=== PATIENT | female | born 1945 ===

== ENCOUNTER 2022-03-15 15:48 | Emergency (ER) | payer MEDICARE ==
[2022-03-15] MEDS ORDERED: SODIUM CHLORIDE 0.9% 1000 ML IV SOLN IV ONE ×2 (16:39→20:30)
[2022-03-15] MEDS ORDERED: cefTRIAXone/NS 2 GM/100 ML 2 GM/100 ML BAG IV ONE ×2 (16:49→21:00)
[2022-03-15] MEDS ORDERED: AZITHROMYCIN/NS 500 MG/250 ML 500 MG/250 ML BAG IV ONE ×2 (16:49→21:00)
--- NOTE | 2022-03-15 16:50 | Emergency Department Report ---
ED Altered Mental Status HPI - General Chief Complaint: Dyspnea/Respdistress Stated Complaint: PNEUMONIA/WEAKNESS Time Seen by Provider: 03/15/22 16:30 Source: EMS Mode of arrival: Stretcher Limitations: Other - History of Present Illness Initial Comments: 76-year-old female with a past medical history of dementia Alzheimer's type and hypothyroidism presents from [facility] for decreased mental status with recent diagnosed with pneumonia. Patient had a chest x-ray yesterday showing pneumonia. Today she has been more altered than usual and not eating and therefore was sent to the ER for evaluation. Patient is currently nonverbal but does follow some basic commands. History obtained from nurse who received EMS report and anchor paperwork patient had a checks x-ray performed 10 AM today showing a slight infiltrate in the left upper lobe TB is not excluded radiographically. Patient had a PPD placed on February 24 and read as negative on February 26. Patient was initially admitted to [place] on February 24. Also has dementia with confusion. - Related Data Previous Rx's Medication Instructions Recorded Last Taken Type Amoxicillin/Potassium Clav 1 each PO Q8HR 5 Days 03/15/22 Unknown Rx [Augmentin 875-125 Tablet] Azithromycin [Zithromax Z-JOSEFA] 1 dose PO DAILY 5 Days tab 03/15/22 Unknown Rx Allergies Allergy/AdvReac Type Severity Reaction Status Date / Time No Known Allergies Allergy Verified 03/15/22 20:20 ED Review of Systems ROS: Stated complaint: PNEUMONIA/WEAKNESS Other details as noted in HPI ED Past Medical Hx - Medications Home Medications: Home Medications Medication Instructions Recorded Confirmed Last Taken Type Amoxicillin/Potassium Clav 1 each PO Q8HR 5 Days 03/15/22 Unknown Rx [Augmentin 875-125 Tablet] Azithromycin [Zithromax Z-JOSEFA] 1 dose PO DAILY 5 Days tab 03/15/22 Unknown Rx ED Physical Exam - General Limitations: Other - Other Other exam information: General: No acute distress Head: Atraumatic Eyes: normal appearance ENT: Moist mucous membranes Neck: Normal appearance, no midline tenderness Chest: Clear to auscultation bilaterally, no tachypnea CV: Regular rate and rhythm Abdomen: Soft, normal bowel sounds, nontender, nondistended, no rebound or guarding Back: Normal inspection Extremity: Normal inspection, full range of motion Neuro: Alert, equal handgrip, good foot dorsiflexion, minimally verbal follows some command Psych: Dementia ED Course Vital Signs 03/15/22 03/15/22 03/15/22 15:56 16:34 19:14 Temperature 98.1 F 98.0 F Pulse Rate 79 72 86 Respiratory 18 16 Rate Blood Pressure 128/76 Blood Pressure 130/60 125/64 [Left] O2 Sat by Pulse 97 95 98 Oximetry - Lab Data Result diagrams: 03/15/22 16:43 03/15/22 16:43 Lab Results 03/15/22 03/15/22 03/15/22 Range/Units 16:43 16:43 16:43 WBC 11.5 H (4.5-11.0) K/mm3 RBC 3.60 L (3.65-5.03) M/mm3 Hgb 11.7 (10.1-14.3) gm/dl Hct 36.0 (30.3-42.9) % MCV 100 H (79-97) fl MCH 33 H (28-32) pg MCHC 33 (30-34) % RDW 13.1 L (13.2-15.2) % Plt Count 206 (140-440) K/mm3 Lymph % (Auto) 9.8 L (13.4-35.0) % [place] % (Auto) 10.2 H (0.0-7.3) % Eos % (Auto) 0.4 (0.0-4.3) % Baso % (Auto) 0.3 (0.0-1.8) % Lymph # (Auto) 1.1 L (1.2-5.4) K/mm3 [place] # (Auto) 1.2 H (0.0-0.8) K/mm3 Eos # (Auto) 0.0 (0.0-0.4) K/mm3 Baso # (Auto) 0.0 (0.0-0.1) K/mm3 Seg Neutrophils % 79.3 H (40.0-70.0) % Seg Neutrophils # 9.1 H (1.8-7.7) K/mm3 Sodium 138 (137-145) mmol/L Potassium 4.1 (3.6-5.0) mmol/L Chloride 97.7 L (98-107) mmol/L Carbon Dioxide 31 H (22-30) mmol/L Anion Gap 13 mmol/L BUN 17 (7-17) mg/dL Creatinine 0.5 L (0.6-1.2) mg/dL Estimated GFR > 60 ml/min BUN/Creatinine Ratio 34 % Glucose 85 (65-100) mg/dL Lactic Acid 0.70 (0.7-2.0) mmol/L Calcium 8.7 (8.4-10.2) mg/dL Magnesium (1.7-2.3) mg/dL Total Bilirubin 0.50 (0.1-1.2) mg/dL AST 11 (5-40) units/L ALT 8 (7-56) units/L Alkaline Phosphatase 127 (35-129) units/L Ammonia (25-60) umol/L Troponin T < 0.010 (0.00-0.029) ng/mL Total Protein 7.1 (6.3-8.2) g/dL Albumin 3.4 L (3.9-5) g/dL Albumin/Globulin Ratio 0.9 % TSH (0.270-4.200) mlU/mL Free T4 (0.76-1.46) ng/dL Valproic Acid (50-100) ug/mL 03/15/22 03/15/22 03/15/22 Range/Units 16:43 16:43 16:43 WBC (4.5-11.0) K/mm3 RBC (3.65-5.03) M/mm3 Hgb (10.1-14.3) gm/dl Hct (30.3-42.9) % MCV (79-97) fl MCH (28-32) pg MCHC (30-34) % RDW (13.2-15.2) % Plt Count (140-440) K/mm3 Lymph % (Auto) (13.4-35.0) % [place] % (Auto) (0.0-7.3) % Eos % (Auto) (0.0-4.3) % Baso % (Auto) (0.0-1.8) % Lymph # (Auto) (1.2-5.4) K/mm3 [place] # (Auto) (0.0-0.8) K/mm3 Eos # (Auto) (0.0-0.4) K/mm3 Baso # (Auto) (0.0-0.1) K/mm3 Seg Neutrophils % (40.0-70.0) % Seg Neutrophils # (1.8-7.7) K/mm3 Sodium (137-145) mmol/L Potassium (3.6-5.0) mmol/L Chloride (98-107) mmol/L Carbon Dioxide (22-30) mmol/L Anion Gap mmol/L BUN (7-17) mg/dL Creatinine (0.6-1.2) mg/dL Estimated GFR ml/min BUN/Creatinine Ratio % Glucose (65-100) mg/dL Lactic Acid (0.7-2.0) mmol/L Calcium (8.4-10.2) mg/dL Magnesium 2.10 (1.7-2.3) mg/dL Total Bilirubin (0.1-1.2) mg/dL AST (5-40) units/L ALT (7-56) units/L Alkaline Phosphatase (35-129) units/L Ammonia 13.0 L (25-60) umol/L Troponin T (0.00-0.029) ng/mL Total Protein (6.3-8.2) g/dL Albumin (3.9-5) g/dL Albumin/Globulin Ratio % TSH 2.780 (0.270-4.200) mlU/mL Free T4 1.02 (0.76-1.46) ng/dL Valproic Acid (50-100) ug/mL 03/15/22 03/15/22 Range/Units 17:42 20:09 WBC (4.5-11.0) K/mm3 RBC (3.65-5.03) M/mm3 Hgb (10.1-14.3) gm/dl Hct (30.3-42.9) % MCV (79-97) fl MCH (28-32) pg MCHC (30-34) % RDW (13.2-15.2) % Plt Count (140-440) K/mm3 Lymph % (Auto) (13.4-35.0) % [place] % (Auto) (0.0-7.3) % Eos % (Auto) (0.0-4.3) % Baso % (Auto) (0.0-1.8) % Lymph # (Auto) (1.2-5.4) K/mm3 [place] # (Auto) (0.0-0.8) K/mm3 Eos # (Auto) (0.0-0.4) K/mm3 Baso # (Auto) (0.0-0.1) K/mm3 Seg Neutrophils % (40.0-70.0) % Seg Neutrophils # (1.8-7.7) K/mm3 Sodium (137-145) mmol/L Potassium (3.6-5.0) mmol/L Chloride (98-107) mmol/L Carbon Dioxide (22-30) mmol/L Anion Gap mmol/L BUN (7-17) mg/dL Creatinine (0.6-1.2) mg/dL Estimated GFR ml/min BUN/Creatinine Ratio % Glucose (65-100) mg/dL Lactic Acid 0.80 (0.7-2.0) mmol/L Calcium (8.4-10.2) mg/dL Magnesium (1.7-2.3) mg/dL Total Bilirubin (0.1-1.2) mg/dL AST (5-40) units/L ALT (7-56) units/L Alkaline Phosphatase (35-129) units/L Ammonia (25-60) umol/L Troponin T (0.00-0.029) ng/mL Total Protein (6.3-8.2) g/dL Albumin (3.9-5) g/dL Albumin/Globulin Ratio % TSH (0.270-4.200) mlU/mL Free T4 (0.76-1.46) ng/dL Valproic Acid 16.7 L (50-100) ug/mL - EKG Data -: EKG Interpreted by [facility] EKG shows normal: sinus rhythm, ST-T waves (No STEMI) Rate: normal (71) - Radiology Data Radiology results: report reviewed CHEST 1 VIEW 03/15/2022 4:42 PM INDICATION / CLINICAL INFORMATION: recent pneumonia, ams. COMPARISON: No relevant prior imaging study available. FINDINGS: SUPPORT DEVICES: None. HEART / MEDIASTINUM: No significant abnormality. LUNGS / PLEURA: Airspace opacities are noted along the upper/mid left lung with additional generalized nonspecific bilateral interstitial opacities. No significant pleural effusion. No pneumothorax. ADDITIONAL FINDINGS: No significant additional findings. IMPRESSION: Suspected left pneumonia with bilateral interstitial prominence favored to represent chronic interstitial lung disease. Please correlate with the clinical findings. CT HEAD WITHOUT CONTRAST INDICATION / CLINICAL INFORMATION: dementia, ams. TECHNIQUE: All CT scans at this location are performed using CT dose reduction for ALARA by means of automated exposure control. COMPARISON: None available. FINDINGS: HEMORRHAGE: No evidence of intracranial hemorrhage or extra-axial fluid collection. EXTRA-AXIAL SPACES: Cortical sulci and sylvian fissures are enlarged reflecting a degree of parenchymal volume loss which is within normal limits for the patient's age of 76 years. Basilar cisterns have an unremarkable appearance. VENTRICULAR SYSTEM: The third and lateral ventricles are enlarged reflecting presence of age related parenchymal volume loss. In addition there is moderate bilateral temporal lobe atrophy. CEREBRAL PARENCHYMA: Periventricular and deep white matter lucency is observed. This is probably secondary to microvascular ischemic change. There is no indication of recent infarction. No areas of encephalomalacia are identified. MIDLINE SHIFT OR HERNIATION: There is no mass effect. CEREBELLUM / BRAINSTEM: Brainstem has an unremarkable appearance. Age related cerebellar atrophy is noted. MIDLINE STRUCTURES:Pituitary gland has an unremarkable appearance. No abnormalities are seen in the pineal region. INTRACRANIAL VESSELS:Calcified atherosclerotic plaque is seen along the course the cavernous segments of both internal carotid arteries. CRANIOCERVICAL JUNCTION:No significant abnormality. ORBITS: Status post bilateral cataract surgery. No additional abnormality. SOFT TISSUES of HEAD: No significant abnormality. CALVARIUM: Evaluation of bone windows reveals no abnormalities. PARANASAL SINUSES / MASTOID AIR CELLS: Paranasal sinuses are free from inflammatory mucosal disease. Mastoid air cells are normally pneumatized. . IMPRESSION: 1. Moderate parenchymal volume loss and microvascular ischemic change with prominent temporal lobe atrophy. 2. No acute intracranial abnormality. - Medical Decision Making 76-year-old female who [facility] confused presents to the hospital for increased confusion with decreased p.o. intake and recent diagnosis of pneumonia. Patient had a negative PPD. Patient has no signs of severe sepsis, hypoxia, or dehydration. Patient was treated with Rocephin, azithromycin, and IV fluids in the ED and will be sent back to [place] with antibiotics for pneumonia Critical Care Time: No Critical care attestation.: If time is entered above; I have spent that time in minutes in the direct care of this critically ill patient, excluding procedure time. ED Disposition Clinical Impression: Pneumonia, Dementia Disposition: HOME / SELF CARE / HOMELESS Is pt being admited?: No Does the pt Need Aspirin: No Condition: Stable Instructions: Bacterial Pneumonia (ED), Community-Acquired Pneumonia, Adult, Dementia, [id number] Additional Instructions: Take the medication as prescribed. Follow-up with your doctor or doctor/clinic provided. Return if symptoms worsen as indicated by your discharge instructions. Prescriptions: Amoxicillin/Potassium Clav [Augmentin 875-125 Tablet] 1 each PO Q8HR 5 Days Azithromycin [Zithromax Z-JOSEFA] 1 dose PO DAILY 5 Days tab Referrals: DAQUAN RILEY [Other] - 3-5 Days Time of Disposition: 22:25
--- NOTE | 2022-03-15 17:05 | XRay Report ---
CHEST 1 VIEW 03/15/2022 4:42 PM INDICATION / CLINICAL INFORMATION: recent pneumonia, ams. COMPARISON: No relevant prior imaging study available. FINDINGS: SUPPORT DEVICES: None. HEART / MEDIASTINUM: No significant abnormality. LUNGS / PLEURA: Airspace opacities are noted along the upper/mid left lung with additional generalize d nonspecific bilateral interstitial opacities. No significant pleural effusion. No pneumothorax. ADDITIONAL FINDINGS: No significant additional findings. IMPRESSION: Suspected left pneumonia with bilateral interstitial prominence favored to represent chronic intersti tial lung disease. Please correlate with the clinical findings. Signer Name: Ari Bernardo MD Signed: 03/15/2022 5:01 PM Workstation Name: [id number]
[2022-03-15 17:15] LABS: Basophils % (Auto) 0.3 % (0.0-1.8); Eosinophils % (Auto) 0.4 % (0.0-4.3); Hemoglobin 11.7 gm/dl (10.1-14.3); Lymphocytes # (Auto) 1.1 K/mm3 (1.2-5.4); Lymphocytes % (Auto) 9.8 % (13.4-35.0); Mean Corpuscular HGB Conc 33 % (30-34); Mean Corpuscular Volume 100 fl (79-97); Monocytes # (Auto) 1.2 K/mm3 (0.0-0.8); Monocytes % (Auto) 10.2 % (0.0-7.3); Platelet Count 206 K/mm3 (140-440); Red Cell Distribution Width 13.1 % (13.2-15.2)
[2022-03-15 17:45] LABS: Alanine Aminotransferase 8 units/L (7-56); Albumin 3.4 g/dL (3.9-5); BUN/Creatinine Ratio 34; Blood Urea Nitrogen 17 mg/dL (7-17); Calcium 8.7 mg/dL (8.4-10.2); Hemolysis Index 0
[2022-03-15 17:52] LABS: Free T4 (Free Thyroxine) 1.02 ng/dL (0.76-1.46)
--- NOTE | 2022-03-15 18:21 | Cat Scan Report ---
CT HEAD WITHOUT CONTRAST INDICATION / CLINICAL INFORMATION: dementia, ams. TECHNIQUE: All CT scans at this location are performed using CT dose reduction for ALARA by means of automated e xposure control. COMPARISON: None available. FINDINGS: HEMORRHAGE: No evidence of intracranial hemorrhage or extra-axial fluid collection. EXTRA-AXIAL SPACES: Cortical sulci and sylvian fissures are enlarged reflecting a degree of parenchym al volume loss which is within normal limits for the patient's age of 76 years. Basilar cisterns have an unremarkable appearance. VENTRICULAR SYSTEM: The third and lateral ventricles are enlarged reflecting presence of age related parenchymal volume loss. In addition there is moderate bilateral temporal lobe atrophy. CEREBRAL PARENCHYMA: Periventricular and deep white matter lucency is observed. This is probably seco ndary to microvascular ischemic change. There is no indication of recent infarction. No areas of ence phalomalacia are identified. MIDLINE SHIFT OR HERNIATION: There is no mass effect. CEREBELLUM / BRAINSTEM: Brainstem has an unremarkable appearance. Age related cerebellar atrophy is n oted. MIDLINE STRUCTURES:Pituitary gland has an unremarkable appearance. No abnormalities are seen in the p ineal region. INTRACRANIAL VESSELS:Calcified atherosclerotic plaque is seen along the course the cavernous segments of both internal carotid arteries. CRANIOCERVICAL JUNCTION:No significant abnormality. ORBITS: Status post bilateral cataract surgery. No additional abnormality. SOFT TISSUES of HEAD: No significant abnormality. CALVARIUM: Evaluation of bone windows reveals no abnormalities. PARANASAL SINUSES / MASTOID AIR CELLS: Paranasal sinuses are free from inflammatory mucosal disease. Mastoid air cells are normally pneumatized. . IMPRESSION: 1. Moderate parenchymal volume loss and microvascular ischemic change with prominent temporal lobe at rophy. 2. No acute intracranial abnormality. Signer Name: Dennys Quiros MD Signed: 03/15/2022 6:17 PM Workstation Name: [id number]
[2022-03-15 19:19] VITALS: BP 128/76
[2022-03-15] MEDS ORDERED: SODIUM CHLORIDE 0.9% 1000 ML 1,000 ML ONE (20:20)
--- NOTE | 2022-03-19 13:50 | Electrocardiograph Report ---
[facility] Test Date: 2022-03-15 Test Time: 17:57:24 Pat Name: CLOVER BURNHAM Department: Room: Gender: F Manufacturing Design Engineer: SHAE : [id number] Requested By: SUJEY DALY Order Number: [id number] Reading MD: Carlos Márquez Measurements Intervals Lewis Rate: 71 P: 56 VT: 99 QRS: -21 QRSD: 96 T: 32 QT: 403 QTc: 439 Interpretive Statements Sinus rhythm No previous ECG available for comparison Electronically Signed On 03-19-2022 13:49:24 EDT by Carlos Márquez
== END 2022-03-16 01:14 | disposition home or self-care (01) ==
LOC: ED 15:48
DX: J18.9 Pneumonia, unspecified organism (principal); F03.90 Unspecified dementia, unspecified severity, without behavioral disturbance, psychotic disturbance, mood disturbance, and anxiety; Z79.899 Other long term (current) drug therapy
CPT/HCPCS: 36415; 70450; 71045; 80053; 80164; 82140; 83735; 84439; 84443; 84484; 85025; 87040; 93005; 96365; 96367; 99285; J0456; J0696; J7030; Q0162